=== PATIENT | female | born 1965 | race American Indian/Alaskan Native ===

== ENCOUNTER 2016-09-23 08:44 | Outpatient (CLI) | payer OTHER ==
--- NOTE | 2016-09-23 14:36 | Ultrasound Report ---
ABDOMINAL ULTRASOUND: 09/23/16 08:44:00 CLINICAL: Abdominal pain. Gastroesophageal reflux disease with esophagitis. FINDINGS: High-resolution ultrasound demonstrated a normal size liver with normal contour and echogenicity. No liver mass. Normal hepatic vasculature and inferior vena cava. Gallbladder is normally distended with normal wall thickness of 2 mm. A single 6 mm calculus is identified in the gallbladder neck. No pericholecystic fluid or gallbladder tenderness. The common bile duct measures 3.2 mm diameter. The pancreas was not well imaged a normal. Normal abdominal aorta. A normal spleen measured 7.8cm. Normal kidneys with normal echogenicity and normal non-dilated renal collecting systems and ureters. The right kidney measured 9.9 x 4.0 x 5.3cm. The left kidney measured 10.2 x 5.5 x 5.1cm. No renal mass or calculus. No ascites or mass. IMPRESSION: 1. Cholelithiasis but no signs of acute cholecystitis. 2. The abdomen is otherwise normal.
--- NOTE | 2016-09-23 15:32 | Mammography Report ---
BILATERAL DIGITAL SCREENING MAMMOGRAM with CAD: 09/23/16 08:44:00 CLINICAL: Routine screening. COMPARISON:09/24/15 FINDINGS: The breasts are heterogeneously dense, which may obscure small masses. A left asymmetry with architectural distortion on the CC view requires additional imaging.No suspicious calcifications.The right breast is negative. A previously described right outer asymmetry is no longer identified. IMPRESSION: Left asymmetry and architectural distortion requiring further workup. BI-RADS CATEGORY: 0 -- Additional Imaging Evaluation Required RECOMMENDATION: Recall for left lateralmedial and spot compression CC views and left breast ultrasound if needed. ACR BI-RADS MAMMOGRAPHIC CODES: 0 = Needs additional imaging evaluation; 1 = Negative; 2 = Benign; 3 = Probably benign; 4 = Suspicious; 5 = Malignant; 6 = Known biopsy-proven malignancy COMMENT: 1. Dense breast tissue, i.e., adenosis, fibrocystic changes, etc., may obscure an underlying neoplasm. 2. Approximately 10% of cancers are not detected with mammography. 3. A negative mammography report should not delay biopsy if a clinically suspicious mass is present. COMMENT: Patient follow-up letters are generated via our [employer] application.
== END 2016-09-23 08:45 | disposition home or self-care (01) ==
LOC: SPVWC 08:44
PROVIDERS: ATTEND Internal Medicine Gastroenterology
DX: Z12.31 Encounter for screening mammogram for malignant neoplasm of breast (principal); K80.20 Calculus of gallbladder without cholecystitis without obstruction; K21.9 Gastro-esophageal reflux disease without esophagitis; K82.8 Other specified diseases of gallbladder; R93.3 Abnormal findings on diagnostic imaging of other parts of digestive tract
CPT/HCPCS: 76700; G0202; 77067

== ENCOUNTER 2016-10-12 15:17 | Outpatient (CLI) | payer OTHER | END 2016-10-12 15:18 | disposition home or self-care (01) | LOC: LABHHL 15:17 | PROVIDERS: ATTEND Internal Medicine Gastroenterology | DX: K29.60 Other gastritis without bleeding (principal); B96.81 Helicobacter pylori [H. pylori] as the cause of diseases classified elsewhere; K21.9 Gastro-esophageal reflux disease without esophagitis; K30 Functional dyspepsia; R13.10 Dysphagia, unspecified; R10.13 Epigastric pain; R14.0 Abdominal distension (gaseous) | CPT/HCPCS: 88305; 88342 ==

== ENCOUNTER 2016-11-10 14:33 | Outpatient (CLI) | payer OTHER ==
--- NOTE | 2016-11-10 15:21 | Ultrasound Report ---
Spot compression magnification of asymmetric density subareolar area left breast seen on CC view followed by sonographic examination of left breast: Findings: One Spot compression magnification view asymmetric density subareolar area is not visualized. Apparently effaced. However there are multiple circumscribed densities noted in the subareolar region. There are no microcalcifications seen. Sonographic examination was multiple cysts subareolar area surrounding the nipple measuring up to 1.1 x 0.7 x 0.8 cm. Approximately 5 benign cysts identified. Impression: Benign findings. Annual followup with mammogram and if necessary sonogram recommended. BI-RADS CATEGORY: 2 = Benign ACR BI-RADS MAMMOGRAPHIC CODES: 0 = Needs additional imaging evaluation; 1 = Negative; 2 = Benign; 3 = Probably benign; 4 = Suspicious; 5 = Malignant; 6 = Known biopsy-proven malignancy COMMENT: 1. Dense breast tissue, i.e., adenosis, fibrocystic changes, etc., may obscure an underlying neoplasm. 2. Approximately 10% of cancers are not detected with mammography. 3. A negative mammography report should not delay biopsy if a clinically suspicious mass is present. COMMENT: Patient follow-up letters are generated in [employer].
== END 2016-11-10 14:34 | disposition home or self-care (01) ==
LOC: SPVWC 14:33
PROVIDERS: ATTEND Internal Medicine
DX: N60.02 Solitary cyst of left breast (principal)
CPT/HCPCS: 76641; G0206

== ENCOUNTER 2017-10-18 10:59 | Outpatient (CLI) | payer OTHER ==
--- NOTE | 2017-10-18 13:24 | XRay Report ---
ROUTINE CHEST, TWO VIEWS: Positive PPD. PA and lateral views demonstrate the heart and mediastinal contour to be of normal size and shape. The lungs are clear and fully expanded and the soft tissues and bony structures are normal. No interval change compared to prior exam in July 2016. IMPRESSION: Normal study.
== END 2017-10-18 11:00 | disposition home or self-care (01) ==
LOC: XRAY 10:59
PROVIDERS: ATTEND Internal Medicine
DX: R76.11 Nonspecific reaction to tuberculin skin test without active tuberculosis (principal)
CPT/HCPCS: 71046

== ENCOUNTER 2017-11-12 11:37 | Outpatient (CLI) | payer OTHER ==
--- NOTE | 2017-11-15 11:30 | Mammography Report ---
BILATERAL DIGITAL SCREENING MAMMOGRAM with CAD: 11/12/17 11:37:00 CLINICAL: Routine screening. COMPARISON:09/23/16 FINDINGS: The breasts are heterogeneously dense, which may obscure small masses. No mass, architectural distortion or suspicious calcifications. IMPRESSION: No mammographic evidence of malignancy. BI-RADS CATEGORY: 1 - - Negative RECOMMENDATION: Routine mammographic screening in one year. COMMENT: Patient follow-up letters are generated by our [employer] application.
== END 2017-11-12 11:38 | disposition home or self-care (01) ==
LOC: SPVWC 11:37
PROVIDERS: ATTEND Internal Medicine
DX: Z12.31 Encounter for screening mammogram for malignant neoplasm of breast (principal)
CPT/HCPCS: 77067

== ENCOUNTER 2018-12-22 16:00 | Outpatient (CLI) | payer OTHER ==
--- NOTE | 2018-12-26 08:23 | Mammography Report ---
BILATERAL DIGITAL SCREENING MAMMOGRAM WITH CAD INDICATION: Screening. COMPARISONS: 11/12/2017 and 09/24/2015 FINDINGS: Craniocaudal and mediolateral oblique views of both breasts were obtained using 2-D digital acquisition. In addition to standard review, the examination was analyzed for possible abnormalities using a computer-assisted detection device (iCAD). The breast tissue is heterogeneously dense, which may obscure small masses. A partially circumscribed right focal asymmetry requires additional imaging. No architectural distort ion or suspicious calcifications. The left breast is negative. IMPRESSION: Right focal asymmetry requiring additional imaging. Recommend recall for right spot compression views and right breast ultrasound. BI-RADS CATEGORY 0: INCOMPLETE - NEED ADDITIONAL IMAGING EVALUATION AND/OR PRIOR MAMMOGRAMS FOR COMP ARISON Information is entered into a reminder system for a target due date for the next mammogram. The resul ts and recommendations were sent to the patient by mail. Signer Name: Srinivas Chan MD Signed: 12/26/2018 8:19 AM Workstation Name: [id number]
== END 2018-12-22 16:01 | disposition home or self-care (01) ==
LOC: SPVWC 16:00
PROVIDERS: ATTEND Internal Medicine
DX: Z12.31 Encounter for screening mammogram for malignant neoplasm of breast (principal)
CPT/HCPCS: 77067

== ENCOUNTER 2019-02-22 14:22 | Outpatient (CLI) | payer OTHER ==
--- NOTE | 2019-02-22 15:03 | Mammography Report ---
DIGITAL DIAGNOSTIC MAMMOGRAM WITHOUT CAD, 02/22/2019 INDICATION: Recall to evaluate asymmetries. TECHNIQUE: Digital right mammographic imaging was performed. Spot compression views were obtained. COMPARISON: 12/22/2018 FINDINGS: Breast Density: The breast is heterogeneously dense, which may obscure small masses. Satisfactory effacement of the previously described asymmetries. No mass or architectural distortion. IMPRESSION: No mammographic evidence of malignancy. Follow up recommendation: Routine yearly BI-RADS Category 1: Negative. A "normal" or negative report should not discourage follow up or biopsy of a clinically significant f inding. A written summary of these findings will be mailed to the patient. The patient will be entered into a mammography reporting system which will generate a reminder letter for the patient's next appointmen t at the appropriate interval. According to the [employer], yearly mammograms are recommended starting at age 40 and continuing as long as a woman is in good health. Breast MRI is recommended for women with an karlos roximately 20-25% or greater lifetime risk of breast cancer, including women with a strong family his tory of breast or ovarian cancer and women who have been treated for Hodgkin's disease. Signer Name: Srinivas Chan MD Signed: 02/22/2019 2:59 PM Workstation Name: [id number]
== END 2019-02-22 14:23 | disposition home or self-care (01) ==
LOC: SPVWC 14:22
PROVIDERS: ATTEND Internal Medicine
DX: R92.2 Inconclusive mammogram (principal)

== ENCOUNTER 2019-02-24 15:19 | Outpatient (CLI) | payer OTHER ==
--- NOTE | 2019-02-24 15:57 | XRay Report ---
CHEST 2 VIEWS INDICATION / CLINICAL INFORMATION: +PPD. COMPARISON: 10/18/2017 FINDINGS: Frontal and lateral chest radiographs demonstrate normal cardiomediastinal silhouette and c lear lungs, given slightly poorer inspiration. Intact bones. Right upper quadrant surgical clips. IMPRESSION: No acute chest process or significant interval change, as described. Signer Name: Ash Caban Signed: 02/24/2019 3:52 PM Workstation Name: [id number]
== END 2019-02-24 15:20 | disposition home or self-care (01) ==
LOC: XRAY 15:19
PROVIDERS: ATTEND Internal Medicine
DX: Z11.1 Encounter for screening for respiratory tuberculosis (principal)
CPT/HCPCS: 71046